=== PATIENT | female | born 1980 | race Caucasian/White ===

== ENCOUNTER 2022-07-30 20:50 | Emergency (ER) | payer OTHER ==
[2022-07-30] MEDS ORDERED: Sodium Chloride 0.9% 1,000 ML IV SCH (21:15)
[2022-07-30 21:59] LABS: ESTIMATED GFR 111 mL/min (>60)
[2022-07-30 22:06] LABS: ACETAMINOPHEN 0 ug/mL (10-30)
[2022-07-30] MEDS ORDERED: Sodium Chloride 0.9% 1,000 ML IV ONE (22:17)
[2022-07-30] MEDS: Potassium Chloride 10 MEQ in Premix Bag 1 BAG IV SCH (22:49)
[2022-07-31] MEDS: Potassium Chloride 10 MEQ in Premix Bag 1 BAG IV SCH ×3 (00:35→03:01)
[2022-07-31] MEDS ORDERED: Ibuprofen 600 MG Tab PO ONE (01:02)
[2022-07-31 01:21] LABS: CORONAVIRUS COVID-19 NAA NEGATIVE (NEGATIVE)
[2022-07-31] MEDS ORDERED: Nicotine 7 MG/24 Hr Patch TRDERM SCH (09:00)
== END 2022-07-31 05:00 ==
LOC: JD.ED 20:50 → MERGE 20:50 → JD.ED 07-31 05:00
DX: F10.129 Alcohol abuse with intoxication, unspecified (principal); F15.10 Other stimulant abuse, uncomplicated; E87.6 Hypokalemia; R74.8 Abnormal levels of other serum enzymes; Z91.041 Radiographic dye allergy status; Z72.0 Tobacco use; Z20.822 Contact with and (suspected) exposure to COVID-19; Y90.1 Blood alcohol level of 20-39 mg/100 ml
CPT/HCPCS: 0241U; 36415; 70450; 71250; 72125; 74176; 80053; 80143; 80179; 80306; 80307; 81001; 81025; 82550; 83605; 83690; 83735; 85007; 85027; 85610; 85730; 93005; 96365; 96366; 99285; A9270; J3480; J7030; 93010; 99284